=== PATIENT | male | born 1950 | race Caucasian/White ===

== ENCOUNTER 2023-07-04 16:58 | Emergency (ER) | payer MEDICARE, SELFPAY ==
[2023-07-04 17:00] VITALS: BP 124/49; PULSE 48; RESP 16; TEMP 35.7; O2SAT 98
--- NOTE | 2023-07-04 17:14 | RAD_ITS ---
STUDY: X-RAY CHEST REASON FOR EXAM: Male, 72 years old. rib pain TECHNIQUE: Frontal and lateral views of the chest. COMPARISON: None. FINDINGS: Elevated right hemidiaphragm. Otherwise normal lung volumes. Minimal density in the lower right lung, mild scarring. No infiltrates. No effusions. Normal size heart. Normal mediastinum and carmen. Normal visualized pulmonary arteries. There is atherosclerotic calcification of the aortic arch with tortuosity. There are diffuse degenerative changes of the visualized thoracic spine. Normal visualized ribs, clavicles, and shoulders. There is no demonstrated abnormality of the visualized soft tissue structures of the upper abdomen. RAD/Chest PA and Lateral IMPRESSION: No definite acute or significant abnormality seen. Electronically Signed: Frankie Hills MD at 19:28 EDT ,
--- NOTE | 2023-07-04 17:14 | RAD_ITS ---
STUDY: X-RAY - RIGHT ELBOW REASON FOR EXAM: Male, 72 years old. Injury/Pain TECHNIQUE: 5 view(s) of the elbow. COMPARISON: None. FINDINGS: Normal visualized humerus, radius and ulna. 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 Calcified triceps enthesopathy. The soft tissue structures are unremarkable. There is no demonstrated fracture. RAD/Elbow min 3 Views IMPRESSION: No acute fracture or dislocation. Electronically Signed: Frankie Hills MD at 19:46 EDT ,
--- NOTE | 2023-07-04 17:15 | EDS_ITS ---
<Statement entered by Matti Man MD - 07/04/23 20:42> I have personally performed a face to face assessment of the patient and have reviewed the CHAITANYA Note. HPI History of Present Illness Chief Complaint: Fall Narrative Narrative: 72-year-old male was brought in by his family after an unwitnessed fall. Daughter was gone for about an hour and when she got home he had scrapes on his extremities. He had been outside cleaning up some leaves on a concrete patio. No signs of head injury and is acting himself. He has advanced dementia and is alert to self only. No blood thinners. He is left-hand dominant [facility] Medical History Dementia Hypertension TBI (traumatic brain injury) Allergy/AdvReac Type Severity Reaction Status Date / Time cephalexin [From Keflex] Allergy Anaphylaxis Verified 07/04/23 17:10 Penicillins Allergy Anaphylaxis Verified 07/04/23 17:10 Social History Smoking Status: Never smoker ROS ROS ED ROS Narrative Unable to obtain due to dementia EXAM Physical Exam Narrative Exam Narrative: CONST: Patient sitting in no acute distress. EYES: Normal inspection. PERRLA, EOMI. ENT: Head normocephalic atraumatic, no raccoon eyes or arvizu sign, no hemotympanum, no nasal septal hematoma, no CSF otorrhea or rhinorrhea. NECK: Normal inspection. No midline spinal tenderness, no step off or crepitus. RESP: No respiratory distress, CTAB. Right upper anterior rib cage pain, no bruising or crepitus. CVS: Regular rate and rhythm, no murmur, no gallop. ABD: Soft and nontender, no guarding or rebound, nondistended. Back: Normal inspection, no midline tenderness or step-offs. SKIN: Color normal, no rash, warm, dry, intact. EXTREMITIES: Normal appearance of upper and lower extremities, tender over right shoulder and right elbow. Full passive range of motion, 2+ radial pulses, no tenderness of lower extremities, 2+ DP pulses. Small abrasions right elbow, left hand, left lateral mcguire. Patient cannot complete strength testing due to dementia. NEURO: Awake and alert to self. PSYCH: Normal affect. Const Vital Signs: 07/04/23 17:00 Temperature 96.3 F L Temperature Source Temporal Pulse Rate 48 L Respiratory Rate 16 Blood Pressure 124/49 H Blood Pressure Mean 74 Pulse Ox 98 Oxygen Delivery Method Room Air MDM MDM MDM Narrative Medical decision making narrative: History gathered from patient and his family members and limited from the patient as he has advanced dementia. He had an unwitnessed fall has a few minor abrasions to the extremities and is complaining of right shoulder pain. He is awake and alert. Vital signs stable. No signs of head injury and he is acting at baseline so I do not think a CT scan of the head is indicated. He has right rib cage pain, shoulder pain and right elbow pain with an abrasion. All extremities have full range of motion and are neurovascularly intact. X-rays including 2 view chest, right shoulder and right elbow show no acute traumatic injuries. I recommended Tylenol and ice and he was discharged in stable condition. Radiography Diagnostic Testing: Clinical Impression(s) from Imaging Studies Chest X-Ray 07/04/23 17:14 IMPRESSION: No definite acute or significant abnormality seen. Electronically Signed: Frankie Hills MD at 19:28 EDT , Elbow X-Ray 07/04/23 17:14 IMPRESSION: No acute fracture or dislocation. Electronically Signed: Frankie Hills MD at 19:46 EDT , Shoulder X-Ray 07/04/23 18:20 IMPRESSION: No acute fracture or dislocation. Possible loose body. Degenerative changes. Electronically Signed: Frankie Hills MD at 19:40 EDT , ED attending interpretation of 2 view chest x-ray shows no evidence of displaced rib fracture or pneumothorax. ED attending interpretation of right shoulder x-ray shows no acute fracture or dislocation. By the attending interpretation of right elbow shows no fracture or dislocation. Discharge Plan Triage Chief Complaint: Fall ED Midlevel Provider: Ju Anderson ED Provider: Matti Man Dx/Rx/DC Orders Clinical Impression: Contusion of rib on right side, Contusion of multiple sites of right shoulder and upper arm Instructions: Bruises (Contusions), ED Bruise, Rib Primary Care Provider: Jim Riley Referrals: Jim Riley MD [Primary Care Provider] - Activity Restrictions/Additional Instructions: Ice and take Tylenol as needed. Follow-up with his doctor if not improving Disposition Disposition: Home, Self Care
[2023-07-04] MEDS: Acetaminophen 325 MG Tablet 650 MG PO (17:20)
--- NOTE | 2023-07-04 18:20 | RAD_ITS ---
STUDY: X-RAY - RIGHT SHOULDER REASON FOR EXAM: Male, 72 years old. Injury/Pain TECHNIQUE: 2 view(s) of the shoulder. COMPARISON: None. FINDINGS: Normal glenohumeral articulation. There is hypertrophic osteoarthrosis of the acromioclavicular joint with inferior osseous spur formation. Normal acromion. Probable 2.2 cm calcified loose body in the subcoracoid bursa. Normal humeral head and visualized proximal humerus. The soft tissue structures are unremarkable. There is no demonstrated fracture. Normal visualized pulmonary apex. RAD/Shoulder min 2 Views IMPRESSION: No acute fracture or dislocation. Possible loose body. Degenerative changes. Electronically Signed: Frankie Hills MD at 19:40 EDT ,
--- NOTE | 2023-07-04 19:13 | EX.ED.DYSGE1 ---
HPI History of Present Illness Chief Complaint: Fall [facility] Medical History Dementia Hypertension TBI (traumatic brain injury) Allergy/AdvReac Type Severity Reaction Status Date / Time cephalexin [From Keflex] Allergy Anaphylaxis Verified 07/04/23 17:10 Penicillins Allergy Anaphylaxis Verified 07/04/23 17:10 Social History Smoking Status: Never smoker EXAM Physical Exam Const Vital Signs: 07/04/23 17:00 Temperature 96.3 F L Temperature Source Temporal Pulse Rate 48 L Respiratory Rate 16 Blood Pressure 124/49 H Blood Pressure Mean 74 Pulse Ox 98 Oxygen Delivery Method Room Air Discharge Plan Triage Chief Complaint: Fall ED Midlevel Provider: Ju Anderson ED Provider: Matti Man Dx/Rx/DC Orders Clinical Impression: Contusion of rib on right side, Contusion of multiple sites of right shoulder and upper arm Instructions: Bruises (Contusions), ED Bruise, Rib Primary Care Provider: Jim Riley Referrals: Jim Riley MD [Primary Care Provider] - Disposition Disposition: Home, Self Care
== END 2023-07-04 19:58 | disposition home or self-care (01) ==
PROVIDERS: Emergency Provider Emergency Medicine; PCP Family Medicine; Visit Provider Emergency Medicine
DX: S20.211A Contusion of right front wall of thorax, initial encounter (principal); F03.90 Unspecified dementia, unspecified severity, without behavioral disturbance, psychotic disturbance, mood disturbance, and anxiety; S40.011A Contusion of right shoulder, initial encounter; S50.311A Abrasion of right elbow, initial encounter; W19.XXXA Unspecified fall, initial encounter
CPT/HCPCS: 71046; 73030; 73080; 99282